=== PATIENT | female | born 1985 | race Caucasian/White ===

== ENCOUNTER 2018-09-12 03:56 | Emergency (ER) | payer SELFPAY, OTHER ==
[2018-09-12] MEDS ORDERED: ONDANSETRON 4 MG INJ IV (04:04)
[2018-09-12] MEDS: METOCLOPRAMIDE 10 MG INJ IV (04:16)
[2018-09-12] MEDS: KETOROLAC 30 MG INJ IV (04:33)
== END 2018-09-12 05:37 | disposition home or self-care (01) ==
LOC: E/R 03:56
DX: G40.909 Epilepsy, unspecified, not intractable, without status epilepticus (principal); R40.2142 Coma scale, eyes open, spontaneous, at arrival to emergency department; R40.2362 Coma scale, best motor response, obeys commands, at arrival to emergency department; R40.2252 Coma scale, best verbal response, oriented, at arrival to emergency department
CPT/HCPCS: 81025; 82962; 96374; 96375; 99284-25